=== PATIENT | female | born 1980 | race Caucasian/White ===

== ENCOUNTER 2017-01-13 14:24 | Emergency (ER) | payer BC ==
[2017-01-13 15:05] VITALS: BP 117/78
--- NOTE | 2017-01-13 15:53 | UC ---
Respiratory Complaint HPI - HPI Summary HPI Summary: COUGH , CHEST TIGHTNESS X 1 WEEK + NASAL CONGESTION, NO FEVER, NO CHILLS, + NASAL CONGESTION - History of Current Complaint Chief Complaint: UCRespiratory Stated Complaint: COUGH,TROUBLE BREATHING-ASTHMA Time Seen by Provider: 01/13/17 15:45 Hx Obtained From: Patient Hx Last Menstrual Period: APPROX 1 WK AGO ?: No Onset/Duration: Gradual Onset, Lasting Days - 7, Still Present Timing: Constant Severity Initially: Moderate Severity Currently: Moderate Character: Cough: Nonproductive Aggravating Factors: Exertion, Deep Breaths Alleviating Factors: Nothing Associated Signs And Symptoms: Positive: Dyspnea, Pleuritic Chest Pain, Wheezing , URI, Nasal Congestion. Negative: Fever, Chills - Allergies/Home Medications Allergies/Adverse Reactions: Allergies Allergy/AdvReac Type Severity Reaction Status Date / Time No Known Allergies Allergy Verified 01/13/17 15:05 Home Medications: Home Medications Linaclotide [Linzess] 72 mcg PO DAILY 01/13/17 [History Confirmed 01/13/17] Topiramate TAB(*) [Topamax 100 mg tab] 125 mg PO BID 01/13/17 [History Confirmed 01/13/17] PMH/Surg Hx/FS Hx/Imm Hx Respiratory History Of: Reports: Asthma - Surgical History Surgical History: Yes Surgery Procedure, Year, and Place: 2 C-SECTIONS. APPY. RIGHT SHOULDER SX - Family History Known Family History: Positive: None Negative: Diabetes - Social History Alcohol Use: Rare Substance Use Type: None Smoking Status (MU): Never Smoked Tobacco Review of Systems Constitutional: Negative Skin: Negative Eyes: Negative ENT: Negative Respiratory: Shortness Of Breath, Cough Cardiovascular: Negative All Other Systems Reviewed And Are Negative: Yes Physical Exam Triage Information Reviewed: Yes Appearance: Well-Appearing, No Pain Distress, Well-Nourished Vital Signs: Initial Vital Signs Temp 98.6 F 01/13/17 15:00 Pulse 80 01/13/17 15:00 Resp 16 01/13/17 15:00 BP 117/78 01/13/17 15:00 Pulse Ox 100 01/13/17 15:00 Vital Signs Reviewed: Yes Eye Exam: Normal Eyes: Positive: Conjunctiva Clear ENT: Positive: Normal ENT inspection, Hearing grossly normal, Pharynx normal, Nasal congestion, TMs normal Neck exam: Normal Neck: Positive: Supple, Nontender, No Lymphadenopathy Respiratory Exam: Normal Respiratory: Positive: Chest non-tender, Lungs clear, Normal breath sounds Cardiovascular: Positive: RRR, No Murmur, Pulses Normal Neurological Exam: Normal Skin Exam: Normal UC Diagnostic Evaluation - Laboratory O2 Sat by Pulse Oximetry: 100 Respiratory Course/Dx - Differential Dx/Diagnosis Provider Diagnoses: BRONCHITIS Discharge - Discharge Plan Condition: Stable Disposition: HOME Prescriptions: Albuterol 2.5MG/3ML (0.083%)* [Ventolin 2.5 MG/3 ML NEB.AKASH*] 2.5 mg INH Q6H PRN #1 box PRN Reason: Wheezing Benzonatate CAP* [Tessalon 100 MG CAP*] 100 mg PO TID PRN #21 cap PRN Reason: Cough Methylprednisolone [Medrol Dosepak 4 MG*] 0 mg PO .SEE NIKKO INSTRUCTION #1 packet Patient Education Materials: Acute Bronchitis (ED) Referrals: [facility] [Primary Care Provider] - 7 Days
== END 2017-01-13 15:58 | disposition home or self-care (01) ==
LOC: UCCORT 14:24
DX: J40 Bronchitis, not specified as acute or chronic (principal)
CPT/HCPCS: 99212; G0463

== ENCOUNTER 2017-10-05 16:42 | Emergency (ER) | payer BC ==
--- OUTSIDE RECORDS SUMMARY | 2017-10-05 17:23 | XMS REPORT ---
:1980 External Reference #:[id number] Author Organization [facility] Address [address] [facility]/[address] [place] [address] Phone [phone] Care Team Providers Name Role Phone Cornell Garland RONALD Care Team Information Supervisor Plastics Unavailable Payers Type Date Identification Numbers Payment Provider Subscriber Commercial Effective: Policy Number: CONNOR Giang 2016 [id number] Sven PayID: [id number] [address] [address] [place] [address] Medigap Part B Expires: Policy Number: CONNOR Mckay 2016 [id number] Sandra Machuca PayID: [id number] [address] [address] [place] [address] Problems Date Description Provider Status Onset: 11/03/2016 Migraine without aura, not refractory Cornell Garland Active Onset: 08/26/2012 Acute sinusitis Cornell Garland Resolved Resolved: 04/10/2013 Onset: 08/26/2012 Headache Cornell Garland Resolved Resolved: 04/10/2013 Family History Date Family Member(s) Problem(s) Comments Father 57 Father Noncontributory HEALTHY Mother 56 Mother Noncontributory HEALTHY Children 4 2 SETS OF TWINS Siblings 1 WITH H PYLORI Social History Type Date Description Comments Marital Status Has been 1 time Occupation [employer] Work Status Full-Time Employment ETOH Use Occasionally consumes alcohol Smoking Patient has never smoked Daily Caffeine Occasionally Allergies, Adverse Reactions, Alerts Date Description Reaction Status Severity Comments 08/26/2012 Codeine CAN TAKE COUGH SYRUP WITH CODEINE active Medications Medication Date Status Form Strength Qnty SIG Indications Ordering Provider Cipro Hx Tablets 500mg 20tabs 1 twice J01.80 Jovan, 017 - a day Anahi Cuevas, M.D. 017 Azithromycin Active Tablets 250mg 6tabs 2 tabs J02.0 Jovan, 017 by mouth Ahmad M., on day M.D. 1, then 1 tab by mouth every day x 4 days Linzess Active Capsules 290mcg 1 by K58.1 Jovan, 017 mouth Ahmad M., every M.D. day Topiramate Active Tablets 50mg 60tabs Take One G43.009 Jovan, 017 Tablet Ahmad M., By Mouth M.D. Twice A Day Hydrocodone-Srini Active Tablets 7.5-325mg 120tabs 1 tab by G43.109 Jovan, taminophen 017 mouth Ahmad M., four M.D. times a day as needed G43.009 Ventolin HFA 01/15/2017 Active Aerosol 108(90Base) 36gm 2 puff by [id number] Jovan, mcg/Act mouth Ahmad M., every 4 M.D. hours as needed R05 R06.02 Frpiuxrncx-Eeq-Emzsovqz 03/28/2016 Active Capsules 50-325-40mg 120caps tab one G43.109 Jovan, by Ahmad mouth M., four M.D. times a day as needed G43.009 Oxygen At 2 L 03/28/2016 Active Portable Tank on prn during R09.02 Jovan, Ahmad Via Mask prn day and night M., M.D. time use for severe asthma with sob and hypoxia [id number] Amethia Active Tablets 0.15-0.03&0.01mg Take One Z30.41 Unknown Tablet By Mouth Every Day Amoxicillin 02/12/2017 Hx Tablets 500mg 4 2 by J02.0 Jovan, - 0 mouth Ahmad 02/22/2017 t twice a M., M.D. a day b s Albuterol 01/30/2017 Hx Nebulizer (2.5mg/3ML) 0.083% 5 use with J45.909 Jovan, Sulfate - 4 nebulizer Ahmad 12/28/2016 0 q4 hours M., M.D. m as needed l for cough/sob R06.02 R05 Cheratussin ac 01/26/2017 - Hx Syrup 100-10mg/5ML 236ml teaspoon 1 R05 Jovan, 12/28/2016 every 4 Ahmad M., hours as M.D. needed Azithromycin 01/25/2017 - Hx Tablets 500mg 7tabs 1 by mouth J01.40 Jovan, 01/28/2017 every day Ahmad Enrique Cuevas Prednisone 01/25/2017 - Hx Tablets 20mg 20tabs 2 tab by R06.02 Jovan, 01/28/2017 mouth daily Ahmad M., 4 M.D. days,30x3d, 20x2d,10x7d J01.40 J20.9 Ciprofloxacin 01/15/2017 - Hx Tablets 500mg 20tabs 1 by mouth J20.9 Jovan, HCL 01/25/2017 twice a day Ahmad Enrique Cuevas Lidocaine 01/15/2017 - Hx Solution 2% 100ml 5-10 Jovan, Viscous 01/26/2017 milliliters Ahmad by mouth four Enirque Cuevas times a day as needed ( may mix with juice or malox) Amoxicillin 12/15/2016 - Hx Tablets 500mg 30tabs 1 three times Jovan, 12/30/2016 a day x10 day Ahgregory Cuevas M.D. Cheratussin ac 09/22/2016 - Hx Syrup 100-10mg 150cc teaspoon 1 R05 Jovan, 12/06/2016 /5ML every 4 hours Ahmad as needed Enrique Cuevas Zithromax 09/22/2016 - Hx Tablets 500mg 7tabs tab one by G43.009 Jovan, 12/06/2016 mouth every Ahmad day x 7 days Enrique Cuevas Xopenex HFA 09/22/2016 - Hx Aerosol 45mcg/Ac 30gm 1 puff twice J45.909 Jovan, 01/15/2017 t a day Ahmad Manjula Cuevas. Gentamicin 09/07/2016 - Hx Solution 0.3% 10cc 2 drops both H10.33 Jovan , Sulfate 09/14/2016 eyes three Ahmad times a day Enrique Cuevas for 5-7 days Miralax 08/08/2016 - Hx Packet [id number] 30units One Packet In K58.1 Jovan , 07/09/2017 8 Ox Liquid Q Anahi Am Enrique Cuevas Azithromycin 07/04/2016 - Hx Tablets 500mg 5tabs 1 by mouth J01.40 Jovan, 07/08/2016 every day Anahi Cuevas M.D. Topamax 07/04/2016 - Hx Tablets 50mg 60tabs tab one by G43.009 Jovan, 04/10/2017 mouth twice a Ahmad day Manjula Cuevas. Hydrocodone-Acet 04/04/2016 - Hx Tablets 5-325mg 60tabs tab 1 every 4 G43.109 [facility], aminophen 03/29/2017 hours as Ahmad needed Enrique Cuevas G43.009 Meclizine HCL 02/17/2016 - Hx Tablets 12.5mg 15tabs 1 by mouth R42 Jovan, 02/23/2016 three times a Ahmad M., day M.D. No Active 12/02/2015 - Hx Unknown Medications 12/02/2015 Amoxicillin 12/02/2015 - Hx Capsules 500mg 30caps 1 by mouth G43.00 Jovan, 12/12/2015 three times a 9 Ahmad M., day M.D. Keflex 04/26/2015 - Hx Capsules 500mg 30caps 1 three times 682.6 Jovan, 04/26/2015 a day Anthonymad Enrique Cuevas Amoxicillin 04/26/2015 - Hx Capsules 500mg 30caps 1 by mouth G43.00 Jovan, 07/22/2015 three times a 9 Ahmad M., day M.D. Gentamicin 10/09/2014 - Hx Solution 0.3% 10cc 2 drops both 372.00 Jovan , Sulfate 07/12/2015 eyes three Ahmad M., times a day M.D. for 5-7 days Azithromycin 10/09/2014 - Hx Tablets 250mg 6tabs take two 461.8 Jovan, 07/12/2015 tablets by Ahmad Mason, mouth as one M.D. dose on the first day then take one daily thereafter x 4 days Hydrocodone-Srini 04/08/2014 - Hx Tablets 5-325mg 60tabs tab 1 every 4 346.00 Jovan, taminophen 07/12/2015 hours as christina Hutchinson M.D. No Active 03/19/2014 - Hx Unknown Medications 03/19/2014 Sulfamethoxazol 03/19/2014 - Hx Tablets 800-160mg 14tabs tab one by 789.9 Jovan, e/Trimethoprim 03/26/2014 mouth twice a Anahi Cuevas DS day Quinn.Sergei Oxygen At 2 L 03/19/2014 - Hx on prn during 799.02 Jovan, Via Mask prn 12/02/2015 day and night Anahi Cuevas time use Enrique Omnicef 09/17/2013 - Hx Capsules 300mg 28caps 1 po bid 465.9 Jovan, 09/27/2013 Anahi Cuevas M.D. 786.2 461.8 Cheratussin ac 09/17/2013 - Hx Syrup 100-10mg/5ML 150cc tsp 1 q 4 786.2 Jovan, 09/27/2013 hrs prn Anahi Cuevas M.D. Erythromycin 04/10/2013 - Hx Caps DR 250mg 40caps tab one po 787.91 Jovan, 04/20/2013 Part qid Anahi Cuevas M.D. Azithromycin 01/31/2013 - Hx Tablets 250mg 6tabs take two 461.8 Jovan, 02/05/2013 tablets by Anahi mouth as one Enrique Cuevas dose on the first day then take one daily thereafter x 4 days Amoxicillin 09/05/2012 - Hx Capsules 500mg 30caps 1 po tid 675.24 Jovan , 09/15/2012 Anahi Cuevas M.D. Imitrex 09/05/2012 - Hx Solution 20mg/Act 12units inject 100mg Jovan, 09/05/2012 as needed Anahi Cuevas M.D. Imitrex 09/05/2012 - Hx Solution 6mg/0.5ML 10units 1-2 Jovan, 04/30/2013 injection Anahi every day as Quinn., M.D. needed Zithromax Z 08/30/2012 - Hx Tablets 250mg 4tabs Uad 461.8 Jovan, Marco 09/04/2012 Anahi Cuevas M.D. Zithromax 08/26/2012 - Hx Tablets 250mg 4tabs tab 4 at 461.8 Jovan, 08/31/2012 once Anahi Cuevas M.D. Lu-Be Hx Tablets 0.35mg Jovan, Anahi Cuevas M.D. Vit. - Hx Tablets 100tabs 1 by mouth Jovan, 03/19/2014 every day Anahi Cuevas M.D. - Hx Tablets Unknown Vitamins 12/28/2016 Lu-Be - Hx Tablets 0.35mg Unknown 02/26/2016 Immunizations CPT Code Status Date Vaccine Lot # [id number] Given 08/15/2017 Flu Vaccine [id number] Given 07/24/2016 Flu Vaccine [id number] Vital Signs Date Vital Result Comment 09/20/2017 BP Systolic 98 mmHg BP Diastolic 58 mmHg Height 64 inches 5'4" Weight 118.00 lb BMI (Body Mass Index) 20.3 kg/m2 Heart Rate 88 /min Body Temperature 97.6 F Respiratory Rate 16 /min 09/06/2017 BP Systolic 110 mmHg BP Diastolic 68 mmHg Height 64 inches 5'4" Weight 114.00 lb BMI (Body Mass Index) 19.6 kg/m2 Heart Rate 79 /min Body Temperature 98.8 F Respiratory Rate 16 /min 08/15/2017 BP Systolic 104 mmHg BP Diastolic 60 mmHg Height 64 inches 5'4" Weight 115.00 lb BMI (Body Mass Index) 19.7 kg/m2 Heart Rate 71 /min Respiratory Rate 16 /min 07/09/2017 BP Systolic 108 mmHg BP Diastolic 64 mmHg Height 64 inches 5'4" Weight 114.00 lb BMI (Body Mass Index) 19.6 kg/m2 Heart Rate 70 /min Respiratory Rate 16 /min 05/31/2017 BP Systolic 116 mmHg BP Diastolic 70 mmHg Height 64 inches 5'4" Weight 119.00 lb BMI (Body Mass Index) 20.4 kg/m2 Heart Rate 89 /min Respiratory Rate 16 /min 05/02/2017 BP Systolic 118 mmHg BP Diastolic 62 mmHg Height 64 inches 5'4" Weight 122.00 lb BMI (Body Mass Index) 20.9 kg/m2 Heart Rate 77 /min Respiratory Rate 16 /min 03/29/2017 BP Systolic 112 mmHg BP Diastolic 70 mmHg Height 64 inches 5'4" Weight 122.00 lb BMI (Body Mass Index) 20.9 kg/m2 Heart Rate 77 /min Respiratory Rate 16 /min 03/15/2017 BP Systolic 120 mmHg BP Diastolic 78 mmHg Height 64 inches 5'4" Weight 122.00 lb BMI (Body Mass Index) 20.9 kg/m2 Heart Rate 88 /min Respiratory Rate 16 /min 02/27/2017 BP Systolic 122 mmHg BP Diastolic 72 mmHg Height 64 inches 5'4" Weight 123.00 lb BMI (Body Mass Index) 21.1 kg/m2 Heart Rate 102 /min Respiratory Rate 16 /min 02/12/2017 BP Systolic 112 mmHg BP Diastolic 70 mmHg Height 64 inches 5'4" Weight 128.00 lb BMI (Body Mass Index) 22.0 kg/m2 Heart Rate 90 /min Body Temperature 97.1 F Respiratory Rate 16 /min 01/25/2017 BP Systolic 124 mmHg BP Diastolic 72 mmHg Height 64 inches 5'4" Weight 118.00 lb BMI (Body Mass Index) 20.3 kg/m2 Heart Rate 105 /min Respiratory Rate 16 /min 01/15/2017 BP Systolic 118 mmHg BP Diastolic 78 mmHg Height 64 inches 5'4" Weight 118.00 lb BMI (Body Mass Index) 20.3 kg/m2 Heart Rate 91 /min Body Temperature 99.0 F Respiratory Rate 16 /min 12/15/2016 BP Systolic 110 mmHg BP Diastolic 70 mmHg Height 64 inches 5'4" Weight 127.00 lb BMI (Body Mass Index) 21.8 kg/m2 Heart Rate 68 /min Body Temperature 97.3 F Respiratory Rate 16 /min 12/07/2016 BP Systolic 118 mmHg BP Diastolic 76 mmHg Height 64 inches 5'4" Weight 127.00 lb BMI (Body Mass Index) 21.8 kg/m2 Heart Rate 72 /min Respiratory Rate 16 /min 09/22/2016 BP Systolic 124 mmHg BP Diastolic 76 mmHg Height 64 inches 5'4" Weight 137.00 lb BMI (Body Mass Index) 23.5 kg/m2 Heart Rate 91 /min Body Temperature 97.1 F Respiratory Rate 16 /min 09/07/2016 BP Systolic 124 mmHg BP Diastolic 72 mmHg Height 64 inches 5'4" Weight 143.00 lb BMI (Body Mass Index) 24.5 kg/m2 Heart Rate 78 /min Respiratory Rate 16 /min 08/03/2016 BP Systolic 124 mmHg BP Diastolic 72 mmHg Height 64 inches 5'4" Weight 142.00 lb BMI (Body Mass Index) 24.4 kg/m2 Heart Rate 82 /min Respiratory Rate 12 /min 07/24/2016 BP Systolic 124 mmHg BP Diastolic 72 mmHg Height 64 inches 5'4" Weight 141.00 lb BMI (Body Mass Index) 24.2 kg/m2 Heart Rate 71 /min Respiratory Rate 16 /min 07/04/2016 BP Systolic 118 mmHg BP Diastolic 74 mmHg Height 64 inches 5'4" Weight 142.00 lb BMI (Body Mass Index) 24.4 kg/m2 Heart Rate 73 /min Body Temperature 97.0 F Respiratory Rate 16 /min 05/31/2016 BP Systolic 116 mmHg BP Diastolic 78 mmHg Height 64 inches 5'4" Weight 140.00 lb BMI (Body Mass Index) 24.0 kg/m2 Heart Rate 80 /min Respiratory Rate 12 /min 03/28/2016 BP Systolic 118 mmHg BP Diastolic 76 mmHg Height 64 inches 5'4" Weight 135.00 lb BMI (Body Mass Index) 23.2 kg/m2 Heart Rate 72 /min Respiratory Rate 16 /min 02/17/2016 BP Systolic 122 mmHg BP Diastolic 70 mmHg Height 64 inches 5'4" Weight 132.00 lb BMI (Body Mass Index) 22.7 kg/m2 Heart Rate 80 /min Body Temperature 97.1 F Respiratory Rate 12 /min 12/02/2015 BP Systolic 116 mmHg BP Diastolic 78 mmHg Height 64 inches 5'4" Weight 131.00 lb BMI (Body Mass Index) 22.5 kg/m2 Heart Rate 80 /min Body Temperature 96.8 F Respiratory Rate 16 /min 07/12/2015 BP Systolic 122 mmHg BP Diastolic 74 mmHg Height 64 inches 5'4" Weight 131.00 lb BMI (Body Mass Index) 22.5 kg/m2 Heart Rate 76 /min Body Temperature 97.7 F Respiratory Rate 12 /min 04/26/2015 BP Systolic 122 mmHg BP Diastolic 64 mmHg Height 64 inches 5'4" Weight 133.00 lb BMI (Body Mass Index) 22.8 kg/m2 Heart Rate 80 /min Respiratory Rate 16 /min 10/09/2014 BP Systolic 122 mmHg BP Diastolic 70 mmHg Height 64 inches 5'4" Weight 162.00 lb BMI (Body Mass Index) 27.8 kg/m2 Heart Rate 80 /min Body Temperature 97.7 F Respiratory Rate 12 /min 04/08/2014 BP Systolic 118 mmHg BP Diastolic 80 mmHg Height 64 inches 5'4" Weight 132.00 lb BMI (Body Mass Index) 22.7 kg/m2 Heart Rate 72 /min Respiratory Rate 16 /min 03/19/2014 BP Systolic 118 mmHg BP Diastolic 76 mmHg Height 64 inches 5'4" Weight 131.00 lb BMI (Body Mass Index) 22.5 kg/m2 Heart Rate 80 /min Body Temperature 98.1 F Respiratory Rate 16 /min 09/17/2013 BP Systolic 115 mmHg BP Diastolic 72 mmHg Height 64 inches 5'4" Weight 130.00 lb BMI (Body Mass Index) 22.3 kg/m2 Heart Rate 72 /min 04/10/2013 BP Systolic 126 mmHg BP Diastolic 82 mmHg Height 64 inches 5'4" Weight 125.00 lb BMI (Body Mass Index) 21.5 kg/m2 Heart Rate 80 /min Body Temperature 98.5 F Respiratory Rate 12 /min 01/31/2013 BP Systolic 118 mmHg BP Diastolic 70 mmHg Height 64 inches 5'4" Weight 126.00 lb BMI (Body Mass Index) 21.6 kg/m2 Heart Rate 72 /min Body Temperature 97.0 F Respiratory Rate 12 /min 09/05/2012 BP Systolic 116 mmHg BP Diastolic 68 mmHg Height 64 inches 5'4" Weight 125.31 lb BMI (Body Mass Index) 21.5 kg/m2 Heart Rate 76 /min Body Temperature 97.3 F Respiratory Rate 12 /min 08/26/2012 BP Systolic 116 mmHg BP Diastolic 68 mmHg Height 64 inches 5'4" Weight 125.31 lb BMI (Body Mass Index) 21.5 kg/m2 Heart Rate 70 /min Body Temperature 97.0 F Respiratory Rate 12 /min Results Test Date Test Result H/L Range Note CBC Without Diff 08/15/2017 WBC 4.0 10*3/uL Low (4.1-11.0) RBC 4.41 10*6/uL (4.00-5.40) HGB 13.6 g/dL (12.0-16.0) HCT 41.0 % (36.0-47.0) MCV 93.1 fL (80.0-95.0) MCH 30.9 pg (27.0-32.0) MCHC 33.2 g/dL (32.0-36.0) RDW 13.6 % (10.5-14.5) PLT 357 10*3/uL (150-450) MPV 8.2 fL (7.1-10.7) CMP 08/15/2017 Sodium 140 mmol/L (136-145) Potassium 3.7 mmol/L (3.6-5.2) Chloride 107 mmol/L (100-108) Co2 25 mmol/L (22-31) Anion Gap 8 mmol/L (7-16) Urea Nitrogen 11 mg/dL (7-24) Creatinine 0.88 mg/dL (0.60-1.00) BUN/Creat Ratio 12.5 RATIO (10.0-20.0) Glucose 98 mg/dL (70-99) Calcium 8.5 mg/dL (8.4-10.2) Total Protein 7.6 g/dL (6.4-8.2) Albumin 3.9 g/dL (3.5-4.6) Globulin 3.7 g/dL (2.7-4.3) Alb/Glob Ratio 1.1 RATIO Alkaline Phosphatase 39 U/L Low (45-117) Bilirubin,Total 0.4 mg/dL (0.0-1.0) Ast (Sgot) 9 U/L Low (11-39) Alt (SGPT) 24 U/L (12-78) GFR >60 ml/min/1.73m2 (>59) GFR ( Amer) >60 ml/min/1.73m2 (>59) GFR Interpretation <SEE NOTE> 1 Laboratory test finding 08/15/2017 TSH,Ultrasensitive @ 0.929 mIU/L ( 0.360-4.170) Esr 6 mm/h (0-20) Laboratory test finding 04/12/2013 HCG, Quant 3.0 mIU/mL 2 Manual Differential 04/10/2013 Neut % 44 % (35-75) Lymph % 50 % (16-52) [place] % 6 % (0-8) Neut # 1.50 K/UL Low (1.80-7.70) Lymph # 1.70 K/UL (1.20-4.80) [place] # 0.20 K/UL (0-0.80) CBC With Diff 04/10/2013 WBC 3.4 K/UL Low (4.1-11.0) RBC 4.37 M/UL (4.00-5.40) HGB 13.7 GM/DL (12.0-16.0) HCT 40.5 % (36.0-47.0) MCV 92.7 FL (80.0-95.0) MCH 31.4 pg (27.0-32.0) MCHC 33.9 g/dL (32.0-36.0) RDW 13.1 % (10.5-14.5) PLT 269 K/UL (150-400) MPV 8.1 FL (7.1-10.7) CMP 04/10/2013 Sodium 141 mmol/L (136-145) Potassium 4.0 mmol/L (3.6-5.2) Chloride 106 mmol/L (100-108) Co2 28 mmol/L (22-31) Anion Gap 7 mmol/L (7-16) Urea Nitrogen 11 mg/dL (7-24) Creatinine 0.8 mg/dL (0.6-1.0) BUN/Creat Ratio 13.8 RATIO (10.0-20.0) Glucose 85 mg/dL (70-99) Calcium 9.1 mg/dL (8.4-10.2) Total Protein 7.5 g/dL (6.4-8.2) Albumin 4.3 g/dL (3.5-4.6) Globulin 3.2 g/dL (2.7-4.3) Alb/Glob Ratio 1.3 RATIO Alkaline Phosphatase 77 U/L (50-136) Bilirubin,Total 0.7 mg/dL (0.0-1.0) Ast (Sgot) 12 U/L (11-39) Alt (SGPT) 24 U/L (12-78) 3 GFR 90 ML/MIN/1.73M2 (>59) GFR ( Amer) >90 ML/MIN/1.73M2 (>59) GFR Interpretation <SEE NOTE> 4 H Pylori Igm AB 04/10/2013 H Pylori AB Igm 0.2 EV 5 H Pylori AB Igg 04/10/2013 H. Pylori AB Igg @ 0.41 U/ML (<0.90) 6 H Pyloir Iga AB 04/10/2013 H Pylori AB Iga 1.2 EV 7 Laboratory test finding 04/10/2013 HCG, Qual. Serum NEGATIVE (Neg) HCG,Quant Preg 8 MIU/ML 8 Laboratory test finding 09/05/2012 Flua/B [id number] By PCR SPECIMEN DESCRIP 9 <SEE NOTE> 1 NORMAL KIDNEY FUNCTION OR MILD DISEASE - GFR >OR=60 CHRONIC KIDNEY DISEASE - GFR 15 - 59 RENAL FAILURE - GFR <15 Est. GFR calculation based on the MDRD study equation, which assumes a steady state for creatinine. Est. GFR should not be used for medication dosing. 2 Result confirmed by repeat analysis. Approximate Gestational Age and Total BHCG Range: 0.2 - 1 Week........................5-50 mIU/mL 1 - 2 Weeks.....................50-500 mIU/mL 2 - 3 Weeks..................100-5,000 mIU/mL 3 - 4 Weeks.................500-10,000 mIU/mL 4 - 5 Weeks...............1,000-50,000 mIU/mL 5 - 6 Weeks.............10,000-100,000 mIU/mL 6 - 8 Weeks.............15,000-200,000 mIU/mL 2 - 3 Months............10,000-100,000 mIU/mL 3 NOTE: [facility] METHOD AND REFERENCE RANGE EFFECTIVE 13 4 NORMAL KIDNEY FUNCTION OR MILD DISEASE - GFR >OR=60 CHRONIC KIDNEY DISEASE - GFR 15 - 59 RENAL FAILURE - GFR <15 Est. GFR calculation based on the MDRD study equation, which assumes a steady state for creatinine. Est. GFR should not be used for medication dosing. 5 Reference range: <=0.8 INTERPRETIVE INFORMATION: Helicobacter Pylori Ab, IgM 0.8 EV or Less .......... Negative: No significant level of IgM antibody to H.pylori detected. 0.9-1.1 EV .............. Equivocal: Repeat testing in 10-14 days may be helpful. 1.2 EV or Greater ....... Positive: IgM antibody to H. pylori detected, suggestive of an active infection. Gastric colonization by Helicobacter pylori has been implicated in the development of some cases of gastritis and peptic or duodenal ulcer. The clinical utility of H. pylori antibody, IgM measurement has not been clearly established. For additional information, refer to Helicobacter pylori topic at [employer] Test developed and characteristics determined by [facility]. See Compliance Statement B: [facility] Performed by [facility], [address] [place] [address] www.[facility], Sean Guevara MD, Lab. Director 6 < 0.90 NEGATIVE > 0.89 AND < 1.09 INDETERMINATE > 1.09 POSITIVE 7 Reference range: <=1.7 INTERPRETIVE INFORMATION: Helicobacter pylori Ab, IgA 1.7 EV or Less .......... Negative: No significant level of IgA antibody to H. pylori detected 1.8 - 2.2 EV ............ Equivocal: Repeat testing in 10-14 days may be helpful. 2.3 EV or Greater ....... Positive: IgA antibody to H. pylori detected, suggestive of active infection. Helicobacter pylori IgG and IgA antibody seroconversion occur together after 60 days. Samples which have a high titer of both IgG and IgA antibodies to H. pylori in symptomatic individuals may be considered to represent an active infection. However, a positive H. pylori IgA result can only infer active infection and should be confirmed by bacterial isolation or other diagnostic testing. For additional information, refer to Helicobacter pylori topic at [facility] Test developed and characteristics determined by [facility]. See Compliance Statement B: [facility] Performed by [facility], [address] [place] [id number] [email or web address].[facility], Sean Guevara MD, Lab. Director 8 INTERPRETATION: LESS THAN 6 NEGATIVE 6 - 10 BORDERLINE (SUGGEST REPEAT IN 48 HOURS) APPROX HCG RANGE WEEKS POST LMP 11 - 130 3 - 4 WEEKS 75 - 2600 4 - 5 WEEKS 850 - 86678 5 - 6 WEEKS 4000 - 257550 6 - 7 WEEKS 70015 - 975310 7 - 12 WEEKS 40465 - 517743 12 - 16 WEEKS 1400 - 03906 16 - 29 WEEKS 940 - 31069 29 - 41 WEEKS 9 SPECIMEN DESCRIPTION NARES SPECIAL REQUESTS NONE RESULT NEGATIVE: INFLUENZA A, B AND 2009 H1N1 NOT DETEC UNA BY PCR. REPORT STATUS FINAL 09/06/2012 Procedures Date CPT Code Description Status 09/20/2017 86381 Spirometry Completed 09/20/2017 70646 Tympanometry Completed 01/15/2017 54762 Spirometry Completed 01/15/2017 23534 Tympanometry Completed 07/04/2016 76516 Tympanometry Completed 12/02/2015 88844 Spirometry Completed 12/02/2015 13914 Tympanometry Completed 10/09/2014 56399 Visual Screening Test Completed 03/19/2014 37873 Oximetry Pulse Or Ear Completed 01/31/2013 79812 Tympanometry Completed Encounters Type Date Location Provider CPT E/M Dx Office Visit 09/06/2017 4:15[place] [address] G43.009 J30.9 L20.9 J45.909 Z30.41 H53.30 K58.1 R09.81 J02.0 Office Visit 08/15/2017 2:00p Anahi Ortega M.D. 41646 G43.009 J30.9 L20.9 J45.909 Z30.41 H53.30 K58.1 Z00.01 Z23 Z68.1 Office Visit 07/09/2017 10:45a Anahi Ortega M.D. 98493 G43.009 J30.9 L20.9 J45.909 Z30.41 H53.30 K58.1 Office Visit 05/31/2017 4:00p Cornell Salvador [facility] 72022 G43.009 Office Visit 05/02/2017 4:30p Cornell [address] [facility] 84524 G43.009 J30.9 Office Visit 03/29/2017 11:15a Cornell [address] [facility] 48634 G43.009 Office Visit 03/15/2017 2:00p Cornell [address] [facility] 67593 G43.009 J30.9 Office Visit 02/27/2017 4:15p Cornell [address] [facility] 56847 G43.009 M94.0 Office Visit 02/12/2017 3:15p Anahi Ortega M.D. 57726 G43.009 J30.9 L20.9 J45.909 Z30.41 J20.9 H66.93 J01.40 R06.02 R05 R09.81 J02.0 Office Visit 01/25/2017 9:45a Anahi Ortega M.D. 87382 G43.009 J30.9 L20.9 J45.909 Z30.41 J20.9 H66.93 J01.40 R06.02 R05 R09.81 J02.9 Office Visit 01/15/2017 4:45p Anahi Ortega M.D. 61223 G43.009 J30.9 L20.9 J45.909 Z30.41 J20.9 H66.93 J01.40 R06.02 R05 R09.81 J02.9 Office Visit 12/15/2016 2:15p Cornell [address] [facility] 08689 G43.009 R05 J02.9 R50.9 Office Visit 12/07/2016 3:30p Cornell [address] [facility] 71496 G43.009 K59.00 Office Visit 09/22/2016 3:45p Cornell [address] [facility] 99561 G43.009 J01.80 R05 Office Visit 09/07/2016 10:15a Cornell [address] [facility] 65918 H10.33 G43.009 Office Visit 08/03/2016 10:15a Cornell [address] [facility] 42156 R10.821 K59.00 R11.0 Office Visit 07/24/2016 2:45p Anahi Ortega M.D. 68056 G43.009 J30.9 L20.9 J45.909 Z23 Z30.41 Office Visit 07/04/2016 2:15p Anahi Ortega M.D. 72149 G43.009 J30.9 L20.9 J45.909 J01.40 R09.81 R05 R06.02 R50.9 H66.93 Office Visit 05/31/2016 8:45a Anahi Ortega M.D. 36480 G43.009 J30.9 L20.9 J45.909 Office Visit 03/28/2016 11:30a Cornell [address] [facility] 35903 R09.02 J45.909 G43.109 Office Visit 02/17/2016 3:00p Cornell [address] [facility] 24100 H92.02 R42 Office Visit 12/02/2015 4:45p oCrnell Salvador [facility] 30570 J01.80 R05 R51 R50.9 Office Visit 07/12/2015 10:45a [address] [facility] 47523 J01.80 R05 R51 R50.9 Office Visit 04/26/2015 3:30p Cornell [address] [facility] 10934 682.6 Office Visit 10/09/2014 2:00p Cornell SalvadorP 22163 461.8 372.00 Office Visit 04/08/2014 11:00a Cornell Salvador [facility] 16208 346.00 Office Visit 03/19/2014 11:30a Cornell Salvador [facility] 15804 493.90 789.9 788.1 346.00 493.90 Office Visit 09/17/2013 1:30p Cornell Salvador [facility] 29989 461.8 786.2 465.9 Office Visit 04/10/2013 11:00a Cornell SalvadorP 97673 626.0 787.91 789.9 Office Visit 01/31/2013 11:00a Cornell SalvadorP 01536 461.8 784.0 786.2 780.60 388.70 Office Visit 09/05/2012 1:45p Cornell Salvador [facility] 72652 079.99 675.24 Office Visit 08/26/2012 11:00a Cornell Salvador [facility] 92337 461.8 784.0 Plan of Care 09/20/2017 - Cornell Garland [id number] Other acute sinusitisNew Medication:Cipro 500 mgComments:INCREASE CLEAR LIQUIDSGARGLE WITH WARM SALT [id number] TOOTHBRUShFINISH ABXH66.93 Otitis media, unspecified, bilateralComments:TYLENOL OR MOTRIN PRNINCREASE PO FLUIDANTIHISTAMINE PRN FINISH ANTIBIOTICS
--- OUTSIDE RECORDS SUMMARY | 2017-10-05 17:24 | XMS REPORT ---
:1980 External Reference #:[id number] Author Organization [facility] Address [address] [facility]/[address] [place] [address] Phone [phone] Care Team Providers Name Role Phone Cornell Garland RONALD Care Team Information Engine Research Engineer Unavailable Payers Type Date Identification Numbers Payment Provider Subscriber Commercial Effective: Policy Number: CONNOR Giang 2016 [id number] Sven PayID: [id number] [address] [address] [place] [address] Medigap Part B Expires: Policy Number: CONNOR Mckay 2016 [id number] Sandra Machuca PayID: [id number] 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 hours as needed R05 R06.02 Ruadgrkwel-Hwc-Pxqxdbiq 03/28/2016 Active Capsules 50-325-40mg 120caps tab one G43.109 Jovan, by Ahmad mouth M., four M.D. times a day as needed G43.009 Oxygen At 2 L 03/28/2016 Active Portable Tank on prn during R09.02 Jovan, Ahmad Via Mask prn day and night M., M.D. time use for severe asthma with sob and hypoxia J45.909 Amethia Active Tablets 0.15-0.03&0.01mg Take One Z30.41 [...] Hx Syrup 100-10mg/5ML 236ml teaspoon 1 R05 Jovan 12/28/2016 every 4 Ahmad M., hours as M.D. needed Azithromycin 01/25/2017 - Hx Tablets 500mg 7tabs 1 by mouth J01.40 Jovan, 01/28/2017 every day Ahmad Manjula Cuevas. Prednisone 01/25/2017 - Hx Tablets 20mg 20tabs 2 tab by R06.02 Jovan, 01/28/2017 mouth daily Ahmad MLinda, 4 M.D. days,30x3d, 20x2d,10x7d J01.40 J20.9 Ciprofloxacin 01/15/2017 - Hx Tablets 500mg 20tabs 1 by mouth J20.9 Jovan, HCL 01/25/2017 twice a day Ahmad Manjula Cuevas. Lidocaine 01/15/2017 - Hx Solution 2% 100ml 5-10 Jovan, Viscous 01/26/2017 milliliters Ahmad by mouth four Enrique Cuevas times a day as needed ( may mix with juice or malox) Amoxicillin 12/15/2016 - Hx Tablets 500mg 30tabs 1 three times Jovan, 12/30/2016 a day x10 day Ahmachristine Cuevas M.D. Cheratussin ac 09/22/2016 - Hx Syrup 100-10mg 150cc teaspoon 1 R05 Jovan, 12/06/2016 /5ML every 4 hours Ahmad as needed Enrique Cuevas Zithromax 09/22/2016 - Hx Tablets 500mg 7tabs tab one by G43.009 [facility], 12/06/2016 mouth every Ahmad day x 7 days Enrique Cuevas Xopenex HFA 09/22/2016 - Hx Aerosol 45mcg/Ac 30gm 1 puff twice J45.909 [facility], 01/15/2017 t a day Ahmad Enrique Cuevas Gentamicin 09/07/2016 - Hx Solution 0.3% 10cc 2 drops both H10.33 Jovan , Sulfate 09/14/2016 eyes three Ahmad times a day Enrique Cuevas for 5-7 days Miralax 08/08/2016 - Hx Packet [id number] 30units One Packet In K58.1 Jovan , 07/09/2017 8 Ox Liquid Q Anahi Cuevas M.D. Azithromycin 07/04/2016 - Hx Tablets 500mg 5tabs 1 by mouth J01.40 Jovan, 07/08/2016 every day Anahi Cuevas M.D. Topamax 07/04/2016 - Hx Tablets 50mg 60tabs tab one by G43.009 Jovan, 04/10/2017 mouth twice a Anthonymad wilfredo Cuevas M.D. Hydrocodone-Acet 04/04/2016 - Hx Tablets 5-325mg 60tabs tab 1 every 4 G43.109 Jovan, aminophen 03/29/2017 hours as Anthonymachristine needed Enrique Cuevas G43.009 Meclizine HCL 02/17/2016 [...] three times 682.6 Jovan, 04/26/2015 a day Anahi Cuevas M.D. Amoxicillin 04/26/2015 - Hx Capsules 500mg 30caps 1 by mouth G43.00 Jovan, 07/22/2015 three times a 9 Ahmad M., day M.D. Gentamicin 10/09/2014 - Hx Solution 0.3% 10cc 2 drops both 372.00 Jovan , Sulfate 07/12/2015 eyes three Ahmad M., times a day M.D. for 5-7 days Azithromycin 10/09/2014 - Hx Tablets 250mg 6tabs take two 461.8 Jovan, 07/12/2015 tablets by Ahmad MLinda, mouth as one M.D. dose on the [...] mouth twice a Anahi Cuevas DS day M.Sergei Oxygen At 2 L 03/19/2014 - Hx on prn during 799.02 Jovan, Via Mask prn 12/02/2015 day and night Anahi Cuevas time use [facility] Omnicef 09/17/2013 - Hx Capsules 300mg 28caps [...] 1-2 Jovan, 04/30/2013 injection Anahi every day dre Cuevas M.D. needed Zithromax Z 08/30/2012 - Hx [...] CPT Code Status Date Vaccine Lot # [id number] Given 08/15/2017 Flu Vaccine [id number] Given 07/24/2016 Flu Vaccine [id number] Vital Signs Date Vital Result Comment 09/06/2017 BP Systolic 110 mmHg BP Diastolic [...] % (35-75) Lymph % 50 % (16-52) [place] % 6 % (0-8) Neut # 1.50 K/UL Low (1.80-7.70) Lymph # 1.70 K/UL (1.20-4.80) [place] # 0.20 K/UL (0-0.80) CBC With Diff [...] - 3 Months............10,000-100,000 mIU/mL 3 NOTE: NEW [facility] METHOD AND REFERENCE RANGE EFFECTIVE 13 [...] information, refer to Helicobacter pylori topic at [employer] Test developed and characteristics determined by [employer]. See Compliance Statement B: [employer]/ Performed by [employer], [address] [place] [id number] www.[employer], Sean Guevara MD, Lab. Director 6 < [...] information, refer to Helicobacter pylori topic at [employer] Test developed and characteristics determined by [employer]. See Compliance Statement B: [employer]/[facility] Performed by [employer], [address] [place] [id number] www.[employer], Sean Guevara MD, Lab. Director 8 INTERPRETATION: LESS THAN 6 NEGATIVE 6 - 10 BORDERLINE (SUGGEST REPEAT IN 48 HOURS) APPROX HCG RANGE WEEKS POST LMP 11 - 130 3 - 4 WEEKS 75 - 2600 4 - 5 WEEKS 850 - 34459 5 - 6 WEEKS 4000 - 745476 6 - 7 WEEKS 65188 - 971505 7 - 12 WEEKS 32045 - 836020 12 - 16 WEEKS 1400 - 37062 16 - 29 WEEKS 940 - 07344 29 - 41 WEEKS 9 SPECIMEN DESCRIPTION NARES SPECIAL REQUESTS NONE RESULT NEGATIVE: INFLUENZA A, B AND 2009 H1N1 NOT DETEC UNA BY PCR. REPORT STATUS FINAL 09/06/2012 Procedures Date CPT Code Description Status 01/15/2017 08562 Spirometry Completed 01/15/2017 62422 Tympanometry Completed 07/04/2016 20672 Tympanometry Completed 12/02/2015 30432 Spirometry Completed 12/02/2015 43941 Tympanometry Completed 10/09/2014 59503 Visual Screening Test Completed 03/19/2014 96548 Oximetry Pulse Or Ear Completed 01/31/2013 70788 Tympanometry Completed Encounters Type Date Location Provider CPT E/M Dx Office Visit 09/06/2017 4:15[place] [address] G43.009 J30.9 L20.9 J45.909 Z30.41 H53.30 K58.1 R09.81 J02.0 Office Visit 08/15/2017 2:00p Anahi Ortega M.D. 98698 G43.009 J30.9 L20.9 J45.909 Z30.41 H53.30 K58.1 Z00.01 Z23 Z68.1 Office Visit 07/09/2017 10:45a Anahi Ortega M.D. 82904 G43.009 J30.9 L20.9 J45.909 Z30.41 H53.30 K58.1 Office Visit 05/31/2017 4:00p Cornell Salvador [facility] 43777 G43.009 Office Visit 05/02/2017 4:30p Cornell SalvadorP 42185 G43.009 J30.9 Office Visit 03/29/2017 11:15a Cornell Salvador [facility] 09049 G43.009 Office Visit 03/15/2017 2:00p Cornell Salvador 86044 G43.009 J30.9 Office Visit 02/27/2017 4:15p Cornell Salvador [facility] 68316 G43.009 M94.0 Office Visit 02/12/2017 3:15p Anahi Ortega M.D. 24553 G43.009 J30.9 L20.9 J45.909 Z30.41 J20.9 H66.93 J01.40 R06.02 R05 R09.81 J02.0 Office Visit 01/25/2017 9:45a Anahi Ortega M.D. 69463 G43.009 J30.9 L20.9 J45.909 Z30.41 J20.9 H66.93 J01.40 R06.02 R05 R09.81 J02.9 Office Visit 01/15/2017 4:45p Anahi Ortega M.D. 01718 G43.009 J30.9 L20.9 J45.909 Z30.41 J20.9 H66.93 J01.40 R06.02 R05 R09.81 J02.9 Office Visit 12/15/2016 2:15p Cornell Salvador ENGINE INSTALLER 55267 G43.009 R05 J02.9 R50.9 Office Visit 12/07/2016 3:30p Cornell Salvador [facility] 04132 G43.009 K59.00 Office Visit 09/22/2016 3:45p Cornell Salvador [facility] 73576 G43.009 J01.80 R05 Office Visit 09/07/2016 10:15a Cornell Salvador [facility] 09929 H10.33 G43.009 Office Visit 08/03/2016 10:15a Cornell Salvador [facility] 99650 R10.821 K59.00 R11.0 Office Visit 07/24/2016 2:45p Anahi Ortega M.D. 70430 G43.009 J30.9 L20.9 J45.909 Z23 Z30.41 Office Visit 07/04/2016 2:15p Anahi Ortega M.D. 64169 G43.009 J30.9 L20.9 J45.909 J01.40 R09.81 R05 R06.02 R50.9 H66.93 Office Visit 05/31/2016 8:45a Anahi Ortega M.D. 49972 G43.009 J30.9 L20.9 J45.909 Office Visit 03/28/2016 11:30a Cornell Salvador [facility] 40682 R09.02 J45.909 G43.109 Office Visit 02/17/2016 3:00p Cornell Salvador [facility] 52576 H92.02 R42 Office Visit 12/02/2015 4:45p Cornell Salvador [facility] 00388 J01.80 R05 R51 R50.9 Office Visit 07/12/2015 10:45a Cornell Salvador [facility] 46512 J01.80 R05 R51 R50.9 Office Visit 04/26/2015 3:30p Cornell Salvador [facility] 79934 682.6 Office Visit 10/09/2014 2:00p Cornell Salvador [facility] 75898 461.8 372.00 Office Visit 04/08/2014 11:00a Cornell Salvador [facility] 22112 346.00 Office Visit 03/19/2014 11:30a Cornell Salvador [facility] 08552 493.90 789.9 788.1 346.00 493.90 Office Visit 09/17/2013 1:30p Cornell Salvador [facility] 85888 461.8 786.2 465.9 Office Visit 04/10/2013 11:00a Cornell Salvador [facility] 10912 626.0 787.91 789.9 Office Visit 01/31/2013 11:00a Cornell Salvador [facility] 82365 461.8 784.0 786.2 780.60 388.70 Office Visit 09/05/2012 1:45p Cornell Salvador [facility] 05369 079.99 675.24 Office Visit 08/26/2012 11:00a Cornell Salvador [facility] 14821 461.8 784.0 Plan of Care 09/06/2017 - Trell Agudelo, PAG43.009 Migraine w/o aura, not intractable, w/ o status migrainosusComments:TYLENOL OR MOTRIN PRNRELAXATION/AVOID XDLBYDKEVR26.9 Allergic rhinitis, unspecifiedComments:INCREASE PO FLUID USE ANTIHISTAMINE PRN SECOND HAND SMOKING CXYFHCTZHK06.9 Atopic dermatitis, unspecifiedComments:SKIN CARE INSTRUCTIONS LOTION OR BABY OIL 2-3 APPLICATION PER DAYUSE MOISTURIZING SOAPAVOID PROLONGED WATER EXPOSUREAVOID USING HOT WATER IN WYUBMOX00.909 Unspecified asthma, uncomplicatedComments:MDI / NEBULIZER TX PRN AVOID EXPOSURE TO SMOKING OR GPKVWL94.41 Encounter for surveillance of contraceptive pillsComments:TAKE RX PRESCRIBED F/U WITH OB/GYNH53.30 Unspecified disorder of binocular visionComments:USE GLASSES/CONTACTSF/U WITH YTLBVBNYFVUEQZ86.1 Irritable bowel syndrome with constipationComments:MOM OR MIRALAX PRNHIGH FIBER DIETINCREASE PO UMAMOM01.81 Nasal congestionComments: INCREASE PO FLUIDTYLENOL OR MOTRIN PRNREST USE ANTIHISTAMINE PRNJ02.0 Streptococcal pharyngitisNew Medication:Azithromycin 250 mgComments:INCREASE PO FLUIDTYLENOL OR MOTRIN PRNREST RESOLVEDCENTOR CRITERIA FOR TREATMENT
[2017-10-05 17:37] VITALS: BP 114/92
--- NOTE | 2017-10-05 17:52 | UC ---
Throat Pain/Nasal Luis Miguel HPI - HPI Summary HPI Summary: was on zithrmax last month from strep throat then developed sinus infection last dose 6 days ago---feels like symptoms are returning---is not using any nasal sprays mucolytics or decongestants-- - History of Current Complaint Chief Complaint: UCEar Stated Complaint: BILAT EAR ACHES Time Seen by Provider: 10/05/17 17:27 Hx Obtained From: Patient Hx Last Menstrual Period: 09/23/17 ?: No Onset/Duration: Sudden Onset, Lasting Days - 4 Severity: Moderate Pain Intensity: 5 Pain Scale Used: 0-10 Numeric Cough: None - Allergies/Home Medications Allergies/Adverse Reactions: Allergies Allergy/AdvReac Type Severity Reaction Status Date / Time No Known Allergies Allergy Verified 10/05/17 17:25 Home Medications: Home Medications Norethindrone Acet & Eth Estra [Microgestin 10/20] 1 tab PO DAILY 10/05/17 [ History Confirmed 10/05/17] PMH/Surg Hx/FS Hx/Imm Hx Previously Healthy: Yes - Surgical History Surgical History: Yes Surgery Procedure, Year, and Place: 2 C-SECTIONS. APPY. RIGHT SHOULDER SX - Family History Known Family History: Positive: None Negative: Diabetes - Social History Occupation: Employed Full-time Lives: With Family Alcohol Use: None Substance Use Type: None Smoking Status (MU): Never Smoked Tobacco - Immunization History Most Recent Influenza Vaccination: FALL 2016 Review of Systems Constitutional: Negative Skin: Negative Eyes: Negative ENT: Sore Throat, Ear Ache Respiratory: Cough Cardiovascular: Negative Gastrointestinal: Negative Genitourinary: Negative Motor: Negative Neurovascular: Negative Musculoskeletal: Negative Neurological: Negative Psychological: Negative Is Patient Immunocompromised?: No All Other Systems Reviewed And Are Negative: Yes Physical Exam Triage Information Reviewed: Yes Appearance: Well-Appearing, No Pain Distress, Well-Nourished Vital Signs: Initial Vital Signs Temp 99.1 F 10/05/17 17:28 Pulse 86 10/05/17 17:28 Resp 18 10/05/17 17:28 BP 114/92 10/05/17 17:28 Pulse Ox 99 10/05/17 17:28 Vital Signs Reviewed: Yes Eye Exam: Normal Eyes: Positive: Conjunctiva Clear ENT Exam: Normal ENT: Positive: Normal ENT inspection, Hearing grossly normal, Pharynx normal, TMs normal - both right and left with clear drum and good light reflex, TM bulging Dental Exam: Normal Neck exam: Normal Neck: Positive: Supple, Nontender, No Lymphadenopathy Respiratory Exam: Normal Respiratory: Positive: Chest non-tender, Lungs clear, Normal breath sounds, No respiratory distress, No accessory muscle use Cardiovascular Exam: Normal Cardiovascular: Positive: RRR, No Murmur, Pulses Normal, Brisk Capillary Refill Musculoskeletal Exam: Normal Musculoskeletal: Positive: Strength Intact, ROM Intact, No Edema Neurological Exam: Normal Neurological: Positive: Alert, Muscle Tone Normal Psychological Exam: Normal Skin Exam: Normal Re-Evaluation - Re-Evaluation First Eval Change: Unchanged - patient agreeable to try flonase and nasal rinses for 1 week ---if no improvement or worses will start antibiodics Throat Pain/Nasal Course/Dx - Course Assessment/Plan: flnase, augmentin if needed follow with pcp prn - Differential Dx/Diagnosis Provider Diagnoses: Rhinosinusitis Discharge - Discharge Plan Condition: Stable Disposition: HOME Prescriptions: Amoxicillin/Clavulanate TAB* [Augmentin TAB 875*] 875 mg PO BID #20 tab Fluticasone NASAL SPRAY 50MCG* [Flonase NASAL SPRAY 50MCG*] 2 spray BOTH NARES DAILY #1 btl Patient Education Materials: Rhinosinusitis (ED), How to Use Nasal [place] (ED) Referrals: [facility] [place] [facility] [Outside] - If Needed
== END 2017-10-05 18:03 | disposition home or self-care (01) ==
LOC: UCCORT 16:42
DX: J32.9 Chronic sinusitis, unspecified (principal); H92.01 Otalgia, right ear; H92.02 Otalgia, left ear
CPT/HCPCS: 99212; G0463